=== PATIENT | female | born 1955 | race Caucasian/White ===

== ENCOUNTER 2022-03-29 15:15 | Emergency (ER) | payer OTHER ==
[2022-03-29 15:46] VITALS: BP 150/75; PULSE 74; RESP 15; TEMP 99.1; BMI 24.0
[2022-03-29] MEDS ORDERED: ACETAMINOPHEN 325 MG TABLET (FP) PO ONE (15:55)
== END 2022-03-29 17:23 | disposition home or self-care (01) ==
LOC: FER 15:15
DX: S09.90XA Unspecified injury of head, initial encounter (principal); W19.XXXA Unspecified fall, initial encounter
CPT/HCPCS: 70450-TC; 72125-TC; 99284-25